=== PATIENT | female | born 1975 | race African-American/Black ===

== ENCOUNTER 2016-08-18 08:27 | Day surgery (SDC) | payer BC ==
[2016-08-14 10:18] LABS: BASOPHILS 0.7 %; BASOPHILS ABSOLUTE 0.04 10/3/uL (0.0-0.16); EOSINOPHILS 1.6 %; EOSINOPHILS ABSOLUTE 0.09 10/3/uL (0.0-0.53); HEMATOCRIT 33.6 % (36.0-48.0); HEMOGLOBIN 11.6 g/dL (12.0-16.0); LYMPHOCYTES 51.8 %; LYMPHOCYTES ABSOLUTE 2.95 10/3/uL (0.67-4.30); MEAN CORPUS HGB CONC 34.5 g/dL (32.0-36.0); MEAN CORPUSCULAR HEMOGLOB 29.7 pg (26.0-34.0); MONOCYTES 5.8 %; MONOCYTES ABSOLUTE 0.33 10/3/uL (0.21-1.20); NEUTROPHILS 40.1 %; NEUTROPHILS ABSOLUTE 2.28 10/3/uL (2.02-8.40); PLATELET COUNT 293 10/3/uL (150-400); RBC DISTRIBUTION WIDTH 13.8 % (12.0-16.0); WHITE BLOOD CELLS 5.7 10/3/uL (4.5-10.5)
[2016-08-14 10:26] LABS: MANUAL DIFF NO %; MEAN CORPUSCULAR VOLUME 86.2 fL (80-100)
[2016-08-14 11:19] LABS: CALCIUM, SERUM 8.5 MG/DL (8.5-10.4); CHLORIDE, SERUM 105 MMOL/L (96-112); CO2 (CARBON DIOXIDE) 30 MMOL/L (24-34); CREATININE 1.09 MG/DL (0.55-1.02); GFR AFRICAN AMERICAN 74 ML/MIN (>=60); GFR NON AFRICAN AMERICAN 64 ML/MIN (>=60); GLUCOSE, SERUM 95 MG/DL (60-99); POTASSIUM, SERUM 3.9 MMOL/L (3.5-5.3); SODIUM, SERUM 144 MMOL/L (135-148)
[2016-08-14 11:21] LABS: BUN (BLOOD UREA NITROGEN) 9 MG/DL (6-23)
--- NOTE | ~2016-08-18 | OP ---
Record Of Operation [facility] [address] [place]. [address] NAME: RAMEZ GARCÍA : 79 STATUS : [place] [facility] [place] PAT#: [id number] AGE: 41 ADM/REG DATE : 08/18/16 MR#: [id number] REPORT SERV DATE: 08/18/16 DICTATED BY: TY REAL DATE: 08/18/16 REPORT STATUS : Draft TRANSCRIBED BY: MODL DATE: 08/18/16 DATE OF PROCEDURE: 08/18/2016 SERVICE: Otolaryngology. PREOPERATIVE DIAGNOSIS: Chronic tonsillitis. POSTOPERATIVE DIAGNOSIS: Chronic tonsillitis. PROCEDURE: Tonsillectomy. SURGEON: Ty Real MD. ANESTHESIA: General endotracheal anesthesia. ESTIMATED BLOOD LOSS: Minimal. COMPLICATIONS: None. SPECIMEN: 1. Left tonsil specimen. 2. Right tonsil. FINDINGS: The patient had 3+ cryptic tonsils. STATEMENT OF MEDICAL NECESSITY: This is a 41-year-old female, referred to me for evaluation of chronic sore throat, tonsilliths, and recurrent strep tonsillitis. Given this history and physical exam, I recommended the above surgery. STATEMENT OF OPERATION: The patient brought to the operating room in supine position, transferred over to the operating room table, all pressure points were padded, and general endotracheal anesthesia was established. The patient's neck was placed in slight extension with a shoulder roll. Afrin was instilled in each nostril and Bactroban was applied to the lips. A McIvor mouth gag was inserted and locked for retraction of the tongue and oral cavity. A red rubber catheter was passed through the right naris and brought out of the mouth and locked for retraction of the soft palate and uvula. 4 mL of 0.25% plain Marcaine were injected into the peritonsillar spaces and parapharyngeal muscles bilaterally. Then, using a suction cautery. The left tonsil was removed first, followed by the right, both sides were cauterized with the suction Bovie. The nasopharynx and pharynx were irrigated thoroughly with warm saline. The stomach and oropharynx were suctioned clear of any fluid with an orogastric tube. This concluded the case. The red rubber catheter and McIvor were removed. The patient was turned over to Anesthesia, where she awoke, was extubated, and transferred to the PACU in stable condition. Record Of Operation [facility] [address] [place]. [address] NAME: RAMEZ GARCÍA : 79 STATUS : [place] [facility] [place] PAT#: [id number] AGE: 41 ADM/REG DATE : 08/18/16 MR#: [id number] REPORT SERV DATE: 08/18/16 DICTATED BY: TY REAL DATE: 08/18/16 REPORT STATUS : Draft TRANSCRIBED BY: MODEden DATE: 08/18/16 PS/OLU Ty Real MD / [id number] CC: Ty Real MD
[~2016-08-18 08:27] MED LIST: AMOXIL500C PO; AVINZA30 PO; BENTYL20 PO; BIAXIN5 PO; CARASPUDL PO; CYMBALTA30 PO; DEMA10T PO; DIASTAT10 PR; ENDOCET1 TA3 PO; ENJUVIA1.25 MG OR; ESTRACE1 MG PO; ESTRADIOL0.05 MG TD; FLORASTOR250 MG PO; GOODY'S EX PO; KADIAN10 MG; LEVOTHYROXIN112 MCG PO; LORTAB 5 PO; MIRALAXPKT PO; MSCONTIN PO; MULTIPLE VIT PO; P10 PO; PERCOCET 10/3251 TAB PO; PHENTERMINE37.5 MG; PR25 PO; PROTONIX PO; SYN1 PO; VALIUM10 MG; VALIUM10 MG PO; ZOFRAN4; ZOFRAN4 PO; ZOFRAN8; [UNRECOGNIZED DRUG - CODE] PO
== END 2016-08-18 23:59 | disposition home health service (06) ==
LOC: MSC 08:27
PROVIDERS: Otolaryngology
PROC: 0CBPXZZ Excision of Tonsils, External Approach (ICD-10-PCS; principal; 2016-08-18 09:45)
DX: J35.1 Hypertrophy of tonsils (principal); G47.33 Obstructive sleep apnea (adult) (pediatric); Z99.81 Dependence on supplemental oxygen; K21.9 Gastro-esophageal reflux disease without esophagitis; E03.9 Hypothyroidism, unspecified
CPT/HCPCS: 80048; 85025; 88304; 93005; A9270-GY; J2250; J2710; J3010